=== PATIENT | male | born 1980 | race Caucasian/White ===

== ENCOUNTER 2017-06-22 13:04 | Emergency (ER) | payer OTHER ==
[~2017-06-22] VITALS: Ht 172.7 cm; Wt 112.5 kg
[~2017-06-22 13:04] MED LIST: CEPH500C3 PO; LORTA5 PO; SULF-154 PO; Z.0.NO CURRENT MEDS
[2017-06-22 13:05] VITALS: BP 141/89; PULSE 72; RESP 14; TEMP 98.1; O2SAT 100
[2017-06-22 13:39] VITALS: O2SAT 100
[2017-06-22] MEDS ORDERED: SODIUM CHLOR 0.9% 1000 ML INJ 1,000 ML IV ONE (14:00)
[2017-06-22] MEDS ORDERED: diphenhydrAMINE HCL 50 MG/ML VIAL IV PUSH ONE (14:00)
[2017-06-22] MEDS ORDERED: PROCHLORPERAZINE INJ 10 MG/2 ML VIAL IV PUSH ONE (14:00)
[2017-06-22 14:11] LABS: AUTOMATED NEUTROPHIL # 6.3 TH/MM3 (1.8-7.7); BASOPHIL # 0.1 TH/MM3 (0-0.2); BASOPHIL % 0.7 % (0.0-2.0); EOSINOPHIL # 0.2 TH/MM3 (0-0.4); EOSINOPHIL % 2.2 % (0.0-4.0); HEMATOCRIT 45.1 % (39.0-51.0); HEMOGLOBIN 15.7 GM/DL (13.0-17.0); LYMPH % 23.6 % (9.0-44.0); LYMPHOCYTE # 2.3 TH/MM3 (1.0-4.8); MEAN CELL VOLUME 86.2 FL (80.0-100.0); MEAN CORPUSCULAR HEMOGLOBIN 30.1 PG (27.0-34.0); MEAN CORPUSCULAR HGB CONC 34.9 % (32.0-36.0); MEAN PLATELET VOLUME 7.9 FL (7.0-11.0); MONO % 7.5 % (0.0-8.0); MONOCYTE # 0.7 TH/MM3 (0-0.9); PLATELET COUNT 221 TH/MM3 (150-450); RED BLOOD COUNT 5.23 MIL/MM3 (4.50-5.90); RED CELL DISTRIBUTION WIDTH 13.7 % (11.6-17.2); WHITE BLOOD COUNT 9.6 TH/MM3 (4.0-11.0)
[2017-06-22 14:12] VITALS: BP_SYST 147; BP_SYST 155; BP_SYST 168; BP_DIAS 62; BP_DIAS 70; BP_DIAS 83
[2017-06-22 14:35] LABS: BICARBONATE 23.2 MEQ/L (21.0-32.0); CALCIUM 8.8 MG/DL (8.5-10.1); CHLORIDE 108 MEQ/L (98-107); CREATININE 1.13 MG/DL (0.60-1.30); GLOMERULAR FILTRATION RATE 74 ML/MIN (>89); GLUCOSE,RANDOM 91 MG/DL (74-106); MAGNESIUM 2.4 MG/DL (1.5-2.5); SODIUM (NA) 140 MEQ/L (136-145)
[2017-06-22 14:41] LABS: BLOOD UREA NITROGEN 21 MG/DL (7-18); TROPONIN I LESS THAN 0.02 NG/ML (0.02-0.05)
--- NOTE | 2017-06-22 14:56 | PD ---
HPI Chief Complaint: Dizziness Time Seen by Provider: 13:17 Travel History International Travel<30 days: No Contact w/Intl Traveler<30days: No Traveled to known affect area: No History of Present Illness HPI 36-year-old male that presents to the ED for evaluation of presyncope. Per patient she's had 2 episodes of presyncope to since yesterday. Per patient he had one last night while working. Per patient he did was look to his left side and wants her to one of his coworkers and he started feeling lightheaded and felt like he was given a passout. He was able to walk it off and sit down and he went away. Per patient he suddenly developed a left-sided headache with what he calls "stiffness" to the left side of his face. Per patient he has no numbness, tingling, weakness to his arms or legs. Per patient the pain was 8 out of 10 and he had pain in the back of his eye. Denies any blurry vision or double vision. No urinary or bowel movement issues. No back pain or neck pain. No falls or injuries. Per patient he didn't think much of it until today when he was working he had the same happened to him. He did not lose consciousness either time. He has never had anything like this before. He denies any medical history of himself. Per patient he has been developing some left sided chest pain. [facility] Past Medical History Medical History: Denies Significant Hx Diminished Hearing: No ?: Not Past Surgical History Surgical History: No Previous Surgery Social History Alcohol Use: No Tobacco Use: No Substance Use: No Allergies-Medications (Allergen,Severity, Reaction): Coded Allergies: No Known Allergies (Unverified , 11/29/12) Reported Meds & Prescriptions Reported Meds & Active Scripts Active No Active Prescriptions or Reported Medications Review of Systems Except as stated in HPI: all other systems reviewed are Neg Physical Exam Narrative GENERAL: SKIN: Warm and dry. HEAD: Atraumatic. Normocephalic. EYES: Pupils equal and round. No scleral icterus. No injection or drainage. ENT: No nasal bleeding or discharge. Mucous membranes pink and moist. Tongue is midline. No uvula deviation. NECK: Trachea midline. No JVD. CARDIOVASCULAR: Regular rate and rhythm. No murmurs, S3, S4. RESPIRATORY: No accessory muscle use. Clear to auscultation. Breath sounds equal bilaterally. GASTROINTESTINAL: Abdomen soft, non-tender, nondistended. Hepatic and splenic margins not palpable. MUSCULOSKELETAL: Extremities without clubbing, cyanosis, or edema. No obvious deformities. Full range of motion of the upper and lower extremities bilaterally. 2+ pulses bilaterally. Gait normal. Romberg is negative. Pronator test negative. Sensation intact and strength 5 out of 5 in all extremities. NEUROLOGICAL: Awake and alert. No obvious cranial nerve deficits. Motor grossly within normal limits. Five out of 5 muscle strength in the arms and legs. Normal speech. PSYCHIATRIC: Appropriate mood and affect; insight and judgment normal. Data Data Last Documented VS Vital Signs Date Time Temp Pulse Resp B/P (MAP) Pulse Ox O2 Delivery O2 Flow Rate FiO2 06/22/17 14:12 72 155/70 (98) 71 147/62 (90) 82 168/83 (111) 06/22/17 13:39 100 Room Air 06/22/17 13:05 98.1 14 Orders Orders Complete Blood Count With Diff (06/22/17 13:33) Basic Metabolic Panel (Bmp) (06/22/17 13:33) Ckmb (Isoenzyme) Profile (06/22/17 13:33) Troponin I (06/22/17 13:33) Magnesium (Mg) (06/22/17 13:33) Thyroid Stimulating Hormone (06/22/17 13:33) Ct Brain W/O Iv Contrast(Rout) (06/22/17 13:33) Iv Access Insert/Monitor (06/22/17 13:33) Ecg Monitoring (06/22/17 13:33) Oximetry (06/22/17 13:33) Orthostatic Vital Signs (06/22/17 13:33) Electrocardiogram (06/22/17 ) Prochlorperazine Inj (Compazine Inj) (06/22/17 14:00) Diphenhydramine Inj (Benadryl Inj) (06/22/17 14:00) Sodium Chlor 0.9% 1000 Ml Inj (Ns 1000 M (06/22/17 14:00) CKMB (06/22/17 13:37) CKMB% (06/22/17 13:37) Ed Discharge Order (06/22/17 15:31) Labs Laboratory Tests Test 06/22/17 13:37 White Blood Count 9.6 TH/MM3 Red Blood Count 5.23 MIL/MM3 Hemoglobin 15.7 GM/DL Hematocrit 45.1 % Mean Corpuscular Volume 86.2 FL Mean Corpuscular Hemoglobin 30.1 PG Mean Corpuscular Hemoglobin Concent 34.9 % Red Cell Distribution Width 13.7 % Platelet Count 221 TH/MM3 Mean Platelet Volume 7.9 FL Neutrophils (%) (Auto) 66.0 % Lymphocytes (%) (Auto) 23.6 % Monocytes (%) (Auto) 7.5 % Eosinophils (%) (Auto) 2.2 % Basophils (%) (Auto) 0.7 % Neutrophils # (Auto) 6.3 TH/MM3 Lymphocytes # (Auto) 2.3 TH/MM3 Monocytes # (Auto) 0.7 TH/MM3 Eosinophils # (Auto) 0.2 TH/MM3 Basophils # (Auto) 0.1 TH/MM3 CBC Comment DIFF FINAL Differential Comment Blood Urea Nitrogen 21 MG/DL Creatinine 1.13 MG/DL Random Glucose 91 MG/DL Calcium Level 8.8 MG/DL Magnesium Level 2.4 MG/DL Sodium Level 140 MEQ/L Potassium Level 4.4 MEQ/L Chloride Level 108 MEQ/L Carbon Dioxide Level 23.2 MEQ/L Anion Gap 9 MEQ/L Estimat Glomerular Filtration Rate 74 ML/MIN Total Creatine Kinase 144 U/L Creatine Kinase MB 1.3 NG/ML Troponin I LESS THAN 0.02 NG/ML Thyroid Stimulating Hormone 3rd Gen 1.020 uIU/ML MDM Medical Decision Making Medical Screen Exam Complete: Yes Emergency Medical Condition: Yes Medical Record Reviewed: Yes Interpretation(s) CBC & BMP Diagram 06/22/17 13:37 Calcium Level 8.8, Magnesium Level 2.4 Troponin and CK-MB negative. EKG shows sinus rhythm with no sign of acute ischemia or arrhythmia read by me and attending. CT negative Differential Diagnosis Headache versus CVA versus dizziness versus presyncope versus syncope versus vasovagal versus a typical migraine versus migraine Narrative Course 36-year-old male that presents to the ED for evaluation of presyncope 2. Patient was properly examined and was found to have signs and symptoms of unclear etiology. Labs and imaging ordered to rule out any sign of acute disease. Patient was given pain medications IV. Labs and imaging showed no sign of acute disease. Patient was given IV medications with no relief. Patient will be given note for work. My attending Dr. De La Cruz evaluated the patient with me and agrees with plan. Patient will be discharged home. Instructions are to follow with PCP. See ED worsening symptoms. Diagnosis Primary Impression: Pre-syncope Additional Impression: Atypical migraine Patient Instructions: General Instructions Departure Forms: Tests/Procedures, Work Release Enter return to work date: Jun 24, 2017 Additional Instructions: Motrin or Tylenol for pain. Follow-up with PCP. See ED worsening symptoms. Med/Other Pt SpecificInfo: Prescription(s) given Scripts No Active Prescriptions or Reported Meds Disposition: 01 DISCHARGE HOME Condition: Stable Dustin Celeste Jun 22, 2017 14:56
--- NOTE | 2017-06-22 15:24 | RADRPT ---
EXAM DATE/TIME: 06/22/2017 15:11 [place] COMPARISON: No previous studies available for comparison. INDICATIONS : Syncopal episode. RADIATION DOSE: 45.10 CTDIvol (mGy) MEDICAL HISTORY : None SURGICAL HISTORY : None. ENCOUNTER: Initial ACUITY: 1 day PAIN SCALE: 5/10 LOCATION: cranial TECHNIQUE: Multiple contiguous axial images were obtained of the head. Using automated exposure control and adj ustment of the mA and/or kV according to patient size, radiation dose was kept as low as reasonably a chievable to obtain optimal diagnostic quality images. DICOM format image data is available electro nically for review and comparison. FINDINGS: CEREBRUM: The ventricles are normal for age. No evidence of midline shift, mass lesion, hemorrhage or acute in farction. No extra-axial fluid collections are seen. POSTERIOR FOSSA: The cerebellum and brainstem are intact. The 4th ventricle is midline. The cerebellopontine angle i s unremarkable. EXTRACRANIAL: The visualized portion of the orbits is intact. SKULL: The calvaria is intact. No evidence of skull fracture. CONCLUSION: Normal examination. Byron Kinsey MD on June 22, 2017 at 15:21 Board Certified Radiologist. This report was verified electronically.
[2017-06-22 16:06] VITALS: BP 137/76
--- NOTE | 2017-06-22 17:27 | PD ---
Data Data Last Documented VS Vital Signs Date Time Temp Pulse Resp B/P (MAP) Pulse Ox O2 Delivery O2 Flow Rate FiO2 06/22/17 16:06 77 16 137/76 (96) 96 06/22/17 13:39 Room Air 06/22/17 13:05 98.1 Orders Orders Complete Blood Count With Diff (06/22/17 13:33) Basic Metabolic Panel (Bmp) (06/22/17 13:33) Ckmb (Isoenzyme) Profile (06/22/17 13:33) Troponin I (06/22/17 13:33) Magnesium (Mg) (06/22/17 13:33) Thyroid Stimulating Hormone (06/22/17 13:33) Ct Brain W/O Iv Contrast(Rout) (06/22/17 13:33) Iv Access Insert/Monitor (06/22/17 13:33) Ecg Monitoring (06/22/17 13:33) Oximetry (06/22/17 13:33) Orthostatic Vital Signs (06/22/17 13:33) Electrocardiogram (06/22/17 ) Prochlorperazine Inj (Compazine Inj) (06/22/17 14:00) Diphenhydramine Inj (Benadryl Inj) (06/22/17 14:00) Sodium Chlor 0.9% 1000 Ml Inj (Ns 1000 M (06/22/17 14:00) CKMB (06/22/17 13:37) CKMB% (06/22/17 13:37) Ed Discharge Order (06/22/17 15:31) Labs Laboratory Tests Test 06/22/17 13:37 White Blood Count 9.6 TH/MM3 Red Blood Count 5.23 MIL/MM3 Hemoglobin 15.7 GM/DL Hematocrit 45.1 % Mean Corpuscular Volume 86.2 FL Mean Corpuscular Hemoglobin 30.1 PG Mean Corpuscular Hemoglobin Concent 34.9 % Red Cell Distribution Width 13.7 % Platelet Count 221 TH/MM3 Mean Platelet Volume 7.9 FL Neutrophils (%) (Auto) 66.0 % Lymphocytes (%) (Auto) 23.6 % Monocytes (%) (Auto) 7.5 % Eosinophils (%) (Auto) 2.2 % Basophils (%) (Auto) 0.7 % Neutrophils # (Auto) 6.3 TH/MM3 Lymphocytes # (Auto) 2.3 TH/MM3 Monocytes # (Auto) 0.7 TH/MM3 Eosinophils # (Auto) 0.2 TH/MM3 Basophils # (Auto) 0.1 TH/MM3 CBC Comment DIFF FINAL Differential Comment Blood Urea Nitrogen 21 MG/DL Creatinine 1.13 MG/DL Random Glucose 91 MG/DL Calcium Level 8.8 MG/DL Magnesium Level 2.4 MG/DL Sodium Level 140 MEQ/L Potassium Level 4.4 MEQ/L Chloride Level 108 MEQ/L Carbon Dioxide Level 23.2 MEQ/L Anion Gap 9 MEQ/L Estimat Glomerular Filtration Rate 74 ML/MIN Total Creatine Kinase 144 U/L Creatine Kinase MB 1.3 NG/ML Troponin I LESS THAN 0.02 NG/ML Thyroid Stimulating Hormone 3rd Gen 1.020 uIU/ML MDM Supervised Visit with ESTELA: Yes Narrative Course The history, exam, and medical decision-making in the associated mid-level provider note were completed with my assistance. I reviewed and agree with the findings presented. I attest that I had a [id number] encounter with the patient on the same day, and personally performed and documented my assessment and findings in the medical record. *My assessment and Findings: Is a 36-year-old man who presents to the emergency department with unusual symptoms of some left-sided headache, that started after some visual changes. He has had some near syncopal symptoms with it. Symptoms came on with a certain head movement. Had a similar episode today. He has a history of migraines with unilateral head pains but states that this feels somewhat different. He has been having more headaches recently has been under more stress. He does have a family member has had aneurysms in the past. He looks well. Neuro exam is reported as unremarkable. I do not think this is a subarachnoid hemorrhage or aneurysmal bleed. He looks well. Unilateral visual findings and flashes and trailing suggest typical migraine. Improved. Will recommend close outpatient follow-up. Diagnosis Primary Impression: Pre-syncope Additional Impression: Atypical migraine Patient Instructions: General Instructions Departure Forms: Work Release, Enter return to work date: Tests/Procedures Additional Instruction: Motrin or Tylenol for pain. Follow-up with PCP. See ED worsening symptoms. Scripts No Active Prescriptions or Reported Meds Disposition: 01 DISCHARGE HOME Condition: Stable Everette De La Cruz MD Jun 22, 2017 17:27
--- NOTE | 2017-06-23 10:52 | EKG ---
Date Performed: 06/22/2017 Time Performed: 14:12:06 PTAGE: 36 years EKG: Sinus rhythm POSSIBLE RIGHT VENTRICULAR CONDUCTION DELAY BORDERLINE ECG NO PREVIOUS TRACING DOCTOR: Amanuel Preston Interpretating Date/Time 06/23/2017 10:50:16
== END 2017-06-22 16:15 | disposition home or self-care (01) ==
LOC: NEPE 13:04
DX: R55 Syncope and collapse (principal); G43.809 Other migraine, not intractable, without status migrainosus; R42 Dizziness and giddiness
CPT/HCPCS: 70450; 80048; 82550; 82552; 83735; 84443; 84484; 85025; 93005; 96374; 96375; 99285; J0780; J1200; J7030